=== PATIENT | male | born 1990 | race Caucasian/White ===

== ENCOUNTER 2017-04-27 15:45 | Emergency (ER) | payer SELFPAY ==
[2017-04-27] MEDS ORDERED: KETOROLAC TROMETHAMINE 60 MG/2 ML VIAL ONE (16:27)
== END 2017-04-27 16:38 | disposition home or self-care (01) ==
LOC: EDH 15:45
DX: M26.621 Arthralgia of right temporomandibular joint (principal); Z72.0 Tobacco use
CPT/HCPCS: 96372; 99283; J1885

== ENCOUNTER 2021-03-05 06:07 | Emergency (ER) | payer SELFPAY ==
[2021-03-05 06:35] LABS: APPEARANCE,URINE CLEAR (CLEAR); BILIRUBIN,URINE NEGATIVE (NEGATIVE); COLOR,URINE YELLOW (YELLOW); GLUCOSE, URINE (UA) NEGATIVE (NEGATIVE); KETONES,URINE NEGATIVE (NEGATIVE); LEUKOCYTE ESTERASE ,URINE NEGATIVE (NEGATIVE); NITRATE,URINE NEGATIVE (NEGATIVE); OCCULT BLOOD,URINE TRACE-INTACT (NEGATIVE); PROTEIN,URINE NEGATIVE (NEGATIVE); UROBILINOGEN,URINE 0.2 mg/dL (0.2-1.0)
[2021-03-05] MEDS ORDERED: IBUPROFEN 600 MG TABLET PO SCH (07:00)
[2021-03-05 07:06] LABS: BACTERIA,URINE Rare /HPF (None Seen); RBC,URINE 0-1 /HPF (0-1); SQUAMOUS EPITHELIAL CELL,UR Rare /HPF (0-2); WBC,URINE 0-1 /HPF (0-1)
[2021-03-05 07:08] LABS: BASOPHILS % (AUTO) 0.6 % (0.0-5.0); EOSINOPHILS % (AUTO) 4.8 % (0.0-8.0); MEAN CORPUSCULAR HGB CONC 34.3 g/dL (32.0-36.0); MONOCYTES % (AUTO) 7.9 % (3.0-13.0); NEUTROPHILS % (AUTO) 58.1 % (40.0-77.0); PLATELET COUNT (AUTO) 214 K/uL (130-400); RED BLOOD CELL COUNT(AUTO) 4.79 MIL/uL (4.50-6.20); RED CELL DISTRIBUTION WIDTH 12.6 % (11.0-15.5)
[2021-03-05 07:43] LABS: ALBUMIN 4.3 g/dL (3.5-5.0); BILIRUBIN,TOTAL 0.4 mg/dL (0.2-1.0); POTASSIUM 3.8 mmol/L (3.5-5.1); TOTAL PROTEIN, SERUM 7.9 g/dL (6.0-8.3)
[2021-03-05 08:35] VITALS: BP 146/77
[2021-03-05] MEDS ORDERED: DOXY-336 PO (09:36)
== END 2021-03-05 10:00 | disposition home or self-care (01) ==
LOC: EDH 06:07
DX: N34.2 Other urethritis (principal)
CPT/HCPCS: 36415; 74176; 80053; 81001; 85025; 87486; 87797

== ENCOUNTER 2021-03-10 03:45 | Emergency (ER) | payer SELFPAY ==
[~2021-03-10] VITALS: Ht 167.6 cm; Wt 104.3 kg
[~2021-03-10 03:45] MED LIST: DOXY-336 PO
[2021-03-10 03:47] VITALS: BP 153/111
[2021-03-10] MEDS ORDERED: ACYC-138 PO (04:15)
[2021-03-10] MEDS ORDERED: ACET1TAB25 PO (04:16)
[2021-03-10] MEDS ORDERED: HYDROCODONE/ACETAMINOPHEN 10/325 MG TAB PO ONE (04:30)
== END 2021-03-10 04:26 | disposition home or self-care (01) ==
LOC: EDH 03:45
DX: A60.02 Herpesviral infection of other male genital organs (principal); F17.200 Nicotine dependence, unspecified, uncomplicated

== ENCOUNTER 2021-12-03 16:40 | Emergency (ER) | payer OTHER ==
[~2021-12-03] VITALS: Ht 167.6 cm; Wt 76.2 kg
[~2021-12-03 16:40] MED LIST changes: +ACET-2079 PO; +ACYC-138 PO
[2021-12-03 16:45] VITALS: BP 136/96
== END 2021-12-03 17:38 | disposition left against medical advice (07) ==
LOC: EDH 16:40
DX: H57.11 Ocular pain, right eye (principal); Z53.21 Procedure and treatment not carried out due to patient leaving prior to being seen by health care provider

== ENCOUNTER 2024-12-08 18:45 | Emergency (ER) | payer SELFPAY ==
[~2024-12-08] VITALS: Ht 167.6 cm; Wt 112.0 kg
[~2024-12-08 18:45] MED LIST changes: +CLOT15CR23 TP; -DOXY-336 PO; +DOXY-466 PO
--- NOTE | 2024-12-08 19:14 | ERN ---
ED Note History of Present Illness Stated Complaint: LT EARACHE Chief Complaint: Earache Time Seen by MD: 18:50 Time Seen by Midlevel: 18:50 Dictation: The patient is a 34-year old male with no past medical history who presents to the emergency department with complains of left ear pain onset yesterday. Patient reports he heard a pop. Denies fevers, denies trauma, denies cough or congestion. Patient does reports decrease hearing. Allergies: Coded Allergies: No Known Drug Allergies (Unverified Allergy, Unknown, 03/05/21) Home Meds Active Scripts Clotrimazole (Clotrimazole) 1 % Cream..g., 1 APPL TP TID for 7 Days, #45 GM 0 Refills apply to affected area(s) Prov:KIRAN ROSENTHAL 02/24/24 Acetaminophen with Codeine (Acetaminophen-Cod #3 Tablet) 1 Each Tablet, 1-2 TAB PO Q6H PRN for PAIN LEVEL 7 TO 10, #20 TAB 0 Refills Prov:JULIOCESAR MURGUIA MD 03/10/21 Acyclovir (Acyclovir) 800 Mg Tablet, 1 TAB PO 5XDAY for 10 Days, #50 TAB 0 Refills Prov:JULIOCESAR MURGUIA MD 03/10/21 Doxycycline Monohydrate (Doxycycline Monohydrate) 100 Mg Capsule, 1 CAP PO BID for 7 Days, #14 CAP 0 Refills Prov:CHETAN BARKER MD 03/05/21 Past Medical History Past Medical History: Hypertension Surgical History: Other Surgical History Other: R HAND Family History: Negative Social History: Smokers, Drugs, Other RN Note Reviewed/Agreed w/PFSH: Yes Review of System Dictation Constitutional: Negative for fever,chills, and weight loss Eyes: Negative for injury, pain,redness, and discharge ENT: Positive for left ear pain Cardiovascular: Negative for chest pain, palpitations, and edema Respiratory: Negative for shortness of breath, cough, and wheezing, Abdomen/GI: Negative for abdominal pain, nausea, vomiting, diarrhea, and constipation Back: Negative for injury and pain : Negative for injury, bleeding and discharge MS/Extremity: Negative for injury and deformity Skin: Negative for rash, and discoloration Neuro: Negative for headache, weakness, numbness, tingling, and seizure Psych: Negative for suicide ideation, homicidal ideation, and hallucinations Initial Vital Sign VS Vital Signs Date Time Temp Pulse Resp B/P (MAP) Pulse Ox O2 Delivery O2 Flow Rate FiO2 12/08/24 18:47 97.9 83 20 140/83 99 Physical Exam Dictation Vital Signs reviewed General Appearance: Alert, oriented x 3, no acute distress, well developed, nourished. Head and Face: non-traumatic. Eyes: PERRL, pink conjunctivas, eyelid no trauma, anterior chamber with arcus senilis. Ears: Pinnas intact and no signs of trauma or erythema ear canals clear and no discharge left tympanic membrane with a erythema, difficulty to visualize call tympanic membrane due to excessive care. No drainage Nose: No discharge, no bleeding. Oropharynx: Mouth normal, tongue pink. pharynx clear,no erythema, tonsils no exudates, no abscesses noted, mucous membrane moist Neck: Supple, non-tender, no thyromegaly, no masses, no JVD, no bruits Breast:Deferred Chest:No tenderness, no crepitus, no paradoxical movement, no retractions Lungs:Clear, well-ventilated, symmetric, no rales, no wheezing, no rhonchi, no stridor, good breath sounds bilaterally Heart: Regular rate, regular rhythm, no murmur, no gallops Vascular: no peripheral edema, Abdomen: Soft, positive bowel sounds, nondistended, no guarding, nontender, no rebound, no masses no hepatomegaly, no splenomegaly, no Dial's sign, no hernias. Rectal: Deferred Genital: Deferred Neurological: Normal speech, motor function intact, sensory function intact Musculoskeletal: Neck nontender, full range of motion, back nontender, full range of motion, Extremities: nontender, full range of motion Skin: Color pink, dry, no turgor, no rash, no lacerations, no abrasions, no contusions. Lymphatic: Deferred Results (Laboratory/Radiology) Labs Reviewed?: Yes ED Course ED Course Vital Signs Date Time Temp Pulse Resp B/P (MAP) Pulse Ox O2 Delivery O2 Flow Rate FiO2 12/08/24 18:47 97.9 83 20 140/83 99 Medical Decision Making MDM The patient is a 34-year old male with no past medical history who presents to the emergency department with complains of left ear pain onset yesterday. Patient reports he heard a pop. Denies fevers, denies trauma, denies cough or congestion. Patient does reports decrease hearing. Patient's symptoms are consistent with a otitis media. Patient will be started on antibiotics. Onset three weeks when patient is in no acute distress, nontoxic appearance. Differential diagnosis: Otitis media, otitis externa, ruptured tympanic membrane Need for hospitalization: Patient does not meet criteria for hospitalization. There are no social concerns with this patient. DX & DISP Disposition: Discharge Departure Impression: Primary Impression: Left otitis media Condition: Stable Scripts Amoxicillin (Amoxicillin) 500 Mg Tablet 1 TAB PO TID for 7 Days, #21 TAB 0 Refills Prov: JONEL BLACKBURN 12/08/24 Additional Instructions: Please take your antibiotics as prescribed. Follow up with the primary doctor in 1-2 days. Avoid getting any water into ear. Avoid any pools, beaches or lakes. If anything worsens please return to ER. FOLLOW-UP WITH PRIMARY CARE PROVIDER IN 1 TO 2 DAYS. TAKE MEDICATIONS DIRECTED HERE IN THE EMERGENCY ROOM. OKAY TO CONTINUE HOME MEDICATIONS UNLESS OTHERWISE DISCUSSED DURING YOUR VISIT IN THE EMERGENCY ROOM TODAY. RETURN TO YOUR NEAREST EMERGENCY ROOM IF SYMPTOMS WORSEN OR IF THERE IS NO IMPROVEMENT. CALL 911 IF YOU NEED IMMEDIATE ASSISTANCE. TAKE TYLENOL [id number] NEEDED AND IF NO CONTRAINDICATIONS ARE PRESENT. INCREASE ORAL HYDRATION. A WOUND CULTURE OR URINE CULTURE WAS ORDERED HERE IN THE EMERGENCY ROOM DEPARTMENT PLEASE FOLLOW-UP WITH PRIMARY CARE PROVIDER AND ADVISE THEM TO GET REPEAT PORTS FROM OUR FACILITY. IF YOU HAD ANY SALO WRAP/SPLINTS THAT WERE APPLIED HERE, PLEASE DO NOT REMOVE THEM UNTIL YOU SEE YOUR PRIMARY CARE OR SPECIALTY. Referrals: SELF,REFERRAL (PCP) Time of Disposition: 19:16 I have reviewed the case, and I agree with, Diagnosis and Plan JNOEL BLACKBURN Dec 08, 2024 19:14
[2024-12-08] MEDS ORDERED: AMOX500T2 PO (19:17)
[2024-12-08 20:19] VITALS: BP 140/83; PULSE 83; RESP 20; TEMP 97.9; O2SAT 99
== END 2024-12-08 20:25 | disposition home or self-care (01) ==
LOC: EDH 18:45
DX: H66.92 Otitis media, unspecified, left ear (principal); I10 Essential (primary) hypertension; F17.200 Nicotine dependence, unspecified, uncomplicated
CPT/HCPCS: 99283